=== PATIENT | male | born 1965 ===

== ENCOUNTER 2019-05-16 10:17 | Emergency (ER) | payer SELFPAY ==
[2019-05-16 10:36] VITALS: BP 190/100
--- NOTE | 2019-05-16 11:02 | UC ---
Upper Extremity HPI - HPI Summary HPI Summary: History obtained via rug inspector. 54 yo [place], comes with his boss, with progressive right elbow pain after a fall between 7 and 10 days ago. 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 He fell forward and hit his right elbow against the side of the desk. Initially he had minimal pain, but he reports increasing pain in the right elbow and numbness in the right fifth digit. Additionally, blood pressure is noted to be very high today. He has not seen a physician in some years and does not know his baseline blood pressure. - History of Current Complaint Chief Complaint: UCUpperExtremity Stated Complaint: ARM INJURY Time Seen by Provider: 05/16/19 10:43 Hx Obtained From: Patient Onset/Duration: Gradual Onset, Lasting Days Pain Intensity: 5 Location Of Pain: Is Discrete @ - right elbow with radiation to right lateral hand border Character: Aching, Throbbing Aggravating Factor(s): Movement, Lifting, Flexion, Extension Alleviating Factor(s): Nothing - has only used over the counter analgesics Associated Signs And Symptoms: Negative: Swelling, Redness, Bruising Related History: Dominant Hand Right - Risk Factors Non-Orthopedic Risk Factor: Negative DVT Risk Factors: Negative Septic Arthritis Risk Factor: Negative - Allergies/Home Medications Allergies/Adverse Reactions: Allergies Allergy/AdvReac Type Severity Reaction Status Date / Time No Known Allergies Allergy Verified 05/16/19 11:39 Home Medications: Home Medications NK [No Home Medications Reported] 05/16/19 [History Confirmed 05/16/19] PMH/Surg Hx/FS Hx/Imm Hx Previously Healthy: Yes - has not had medical assessment in years - Surgical History Surgical History: None - Family History Known Family History: Positive: Unknown - He does not know his FH well - Social History Occupation: Employed Full-time - works doing [employer] work Lives: Alone - Lives alone in housing which his employer helped him to find. Alcohol Use: None Substance Use Type: None Smoking Status (MU): Heavy Every Day Tobacco Smoker Have You Smoked in the Last Year: Yes Review of Systems All Other Systems Reviewed And Are Negative: Yes Constitutional: Positive: Negative Skin: Positive: Negative Eyes: Positive: Negative ENT: Positive: Negative Respiratory: Positive: Other - chronic smoking. Cardiovascular: Positive: Other - some chest tightness. Gastrointestinal: Positive: Negative Genitourinary: Positive: Negative Motor: Positive: Negative Neurovascular: Positive: Negative Musculoskeletal: Positive: Arthralgia Neurological: Positive: Paresthesia - ulnar border of right hand Psychological: Positive: Negative Is Patient Immunocompromised?: No Physical Exam Triage Information Reviewed: Yes Appearance: Well-Appearing, Pain Distress - mild to moderate Vital Signs: Initial Vital Signs Temp 100 F 05/16/19 10:29 Pulse 76 05/16/19 10:29 Resp 16 05/16/19 10:29 BP 190/100 05/16/19 10:29 Pulse Ox 100 05/16/19 10:29 Eye Exam: Normal ENT Exam: Normal Neck: Positive: Supple, Nontender, No Lymphadenopathy Respiratory: Positive: Decreased breath sounds, Rhonchi - throughout the right lung field. Cardiovascular: Positive: RRR, No Murmur Musculoskeletal Exam: Other - TTP right lateral epicondyle. Pain with flexion, but ok with pronation and supination. Musculoskeletal: Positive: ROM Limited @ - right elbow with pain with flexion and extension, but no pain with pronation and supination. Neurological Exam: Other - Normal electric razor assembler strength right hand without wasting. Decrease in sensation right hand fifth digit and medial border of fourth digit. Neurological: Positive: Alert, Muscle Tone Normal Psychological Exam: Normal Skin Exam: Normal Diagnostics - Radiology No standard instances Radiology Interpretation Completed By: Radiologist - Patient Name: RAY FERRELL V Medical Record#: [id number] Ordering Physician: Lori Graves MD Acct.#: [id number] : 1965 Age: 54 Sex: M Location: [facility] Exam Date: 05/16/19 1101 ADM Status: REG ER Order Information: ELBOW RIGHT 3+ VWS Accession Number: [id number] CPT : 80761 INDICATION: Right elbow injury. TECHNIQUE: 4 views of the right elbow were obtained. FINDINGS: Partial joint effusion. The bone mineralization is within normal limits. No fracture is identified. Anatomic alignment is maintained.. There is mild osteoarthropathy. IMPRESSION: No displaced fracture identified. Questionable joint effusion raises suspicion for an occult fracture. Correlate with point tenderness and consider repeat imaging in 7-10 days. <Electronically signed by Julian Serna MD in OV> 05/16/19 1140 Dictated By: Julian Serna MD Dictated Date/Time : 05/16/19 1138 Transcribed Date/Time: 05/16/19 1138 Copy to: CC:Destiny Ortiz MD; Lori Graves MD Imaging - [facility] Imaging - [facility] Imaging - [facility] [id number] [place] [id number] ph ([phone]) ph ([phone]) ph ([phone]) This report is only to be considered final once signed by the Provider(s) as displayed in the "<Electronically Signed by >" field (s). Absence of a signature indicates the report is in a draft status and still needs to be finalized. In the event this document was created by someone other than the signing Provider, the individual initiating the document will be listed in the "Entered by:" or "Dictated by:" coyne. 1 of 1 Upper Extremity Course/Dx - Course Course Of Treatment: Sling to right arm with use of ice. Reviewed with Mr. Ferrell and his employer [employer] that he his findings suggest ulnar neuropathy which could be the result of the injury, and that the likelihood of spontaneous improvement is high. Given his lack of medical care and need for community support, we contacted hospital social work program coordinator to help with getting medical insurance and communitiy support. - Differential Dx/Diagnosis Differential Diagnosis/HQI/PQRI: Contusion, Fracture (Closed) Provider Diagnosis: Effusion of elbow joint, right, Ulnar neuropathy at elbow Discharge ED - Sign-Out/Discharge Documenting (check all that apply): Patient Departure All imaging exams completed and their final reports reviewed: Yes - Discharge Plan Condition: Stable Disposition: HOME Patient Education Materials: Paresthesia (ED) Referrals: [facility] [Outside] Destiny Ortiz MD [Primary Care Provider] - Kimberly Paula MD [Medical Doctor] - Additional Instructions: As discussed the cause of the elbow pain is a possible hidden fracture. The numbness in the little finger suggests trauma to the ulnar nerve, and this often improves on its own. Splint the right arm, and use ice packs on the elbow. Follow up with orthopedics. Use ibuprofen 600mg three times daily for control of pain. Please call today to arrange a visit for Sunday with Orthpedics to advise about follow up treatment and otlook for work. - Billing Disposition and Condition Condition: STABLE Disposition: Home
== END 2019-05-16 13:18 | disposition home or self-care (01) ==
LOC: UCEAST 10:17
DX: M25.421 Effusion, right elbow (principal); G56.21 Lesion of ulnar nerve, right upper limb; F17.200 Nicotine dependence, unspecified, uncomplicated
CPT/HCPCS: 99201; G0463

== ENCOUNTER 2019-05-16 10:17 | Emergency (ER) | payer SELFPAY ==
[2019-05-16 11:40] VITALS: BP 190/100
--- NOTE | 2019-05-16 12:02 | UC ---
Hypertension HPI - HPI Summary HPI Summary: 54 yo [place] refugee, presented today for evaluation of work injury, and was found to have severe initial elevation of blood pressure in addition to report of chest discomfort over the past week. He is a [facility] sm[facility], and does not report cough. He has been feeling a bit lightheaded over the past week , with no changes in vision. He has no previous hx of hypertension, but he has actually not had a medical assessment in years. Repeat blood pressure done by me (patient seated, feet planted, cuff apllied to skin) showed blood pressure on the right of 144/90, left arm 146/96. Chest xray shows a tortuous aorta. He has lost over 100 pounds of weight since coming to the in 2004, but present reported weight Reports a normal appetite and current dietary intake sounds healthy. Reviewed that current BMI is in normal range with a height of 5 feet 6 inches and 160 pounds. - History of Current Complaint Chief Complaint: UCGeneralIllness Stated Complaint: HIGH BLOOD PRESSURE Hx Obtained From: Patient, Family/Manager Legal - here with his employer [employer]. 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 Onset/Duration: Gradual Onset Timing: Constant Aggravating Factor(s): Nothing Alleviating Factor(s): Nothing Associated Signs And Symptoms: Positive: Negative - Risk Factors Cardiac Risk Factors: Hypertension - Allergies/Home Medications Allergies/Adverse Reactions: Allergies Allergy/AdvReac Type Severity Reaction Status Date / Time No Known Allergies Allergy Verified 05/16/19 11:39 PMH/Surg Hx/FS Hx/Imm Hx Previously Healthy: Yes - no recent medical check up - Surgical History Surgical History: None - Family History Known Family History: Positive: Unknown - he is not familar with his FH - Social History Occupation: Employed Full-time Lives: Alone - Lives alone in a room in a house. His employer has given him a lot of support. He sends most of his pay to his relatives, and is reluctant to spend money on his own medical needs. Alcohol Use: None Substance Use Type: None Smoking Status (MU): Heavy Every Day Tobacco Smoker Review of Systems All Other Systems Reviewed And Are Negative: Yes Constitutional: Positive: Negative, Other - overall feels well. Weight loss over past decade reported, but it sounds gradual and intentional. Skin: Positive: Negative Eyes: Positive: Negative, Other - high myopia, wears corrective lenses.. Negative: Blurred Vision, Diplopia ENT: Positive: Negative Respiratory: Negative: Shortness Of Breath, Cough Cardiovascular: Positive: Chest Pain - had transient sense of discomfort last week, not currently present.. Negative: Palpitations Gastrointestinal: Positive: Negative Genitourinary: Positive: Negative Motor: Positive: Negative Neurovascular: Positive: Negative Musculoskeletal: Positive: Arthralgia Neurological: Negative: Headache, Weakness, Paresthesia Psychological: Positive: Negative Is Patient Immunocompromised?: No Physical Exam Triage Information Reviewed: Yes Appearance: Well-Appearing, Pain Distress - mild to moderate Vital Signs: Initial Vital Signs Temp 100 F 05/16/19 11:39 Pulse 76 05/16/19 11:39 Resp 16 05/16/19 11:39 BP 190/100 05/16/19 11:39 Pulse Ox 100 05/16/19 11:39 Vital Signs Reviewed: Yes Respiratory: Positive: Decreased breath sounds, Rhonchi - right chest Re-Evaluation - Re-Evaluation First Eval Re-Evaluation Time: 13:00 Change: Improved Comment: Blood pressure repeated by provider showed 140/90 in the right arma and 146/96 on the left. Hypertension Course/Dx - Course Course Of Treatment: follow up with [facility] re BP and need for medical care. - Differential Dx/Diagnosis Differential Diagnosis/HQI PQRI: Hypertension, Hypertensive Crisis Provider Diagnosis: Hypertension Discharge ED - Sign-Out/Discharge Documenting (check all that apply): Patient Departure All imaging exams completed and their final reports reviewed: Yes - Discharge Plan Condition: Stable Disposition: HOME Patient Education Materials: Hypertension (ED) Referrals: Destiny Ortiz MD [Primary Care Provider] - [facility] [Outside] Additional Instructions: Please ensure that you arrange a follow up with the [facility] for a re-evaluation of blood pressure and to establish regular medical care. - Billing Disposition and Condition Condition: STABLE Disposition: Home
== END 2019-05-16 13:21 | disposition home or self-care (01) ==
LOC: UCEAST 10:17
DX: I10 Essential (primary) hypertension (principal); R07.9 Chest pain, unspecified; M25.50 Pain in unspecified joint; F17.200 Nicotine dependence, unspecified, uncomplicated
CPT/HCPCS: 71046; 99211; G0463